=== PATIENT | female | born 1985 | race Two or more races ===

== ENCOUNTER 2020-12-20 09:03 | Emergency (ER) | payer BC, OTHER ==
[~2020-12-20] VITALS: Ht 160 cm; Wt 63.1 kg
[2020-12-20 09:10] VITALS: BP 131/71
--- NOTE | 2020-12-20 09:41 | PHYS DOC ---
General Adult EDM: Chief Complaint: VAGINAL BLEEDING HPI: HPI: 35-year-old female presents with vaginal bleeding in . She presents with her who is attached to the local base. Telugu is her second language as they are both [place]. They took a home test 1 week ago. She has not seen an OB. The patient's last menstrual cycle was November 12, 2020. She has been having some light menstrual bleeding yesterday and today. She has had some intermittent abdominal cramping as well and she was concerned. She denies fever or chills. She has no other complaints at this time. Review of Systems: Review of Systems: Constitutional: Denies fever or chills Eyes: Denies change in visual acuity HENT: Denies nasal congestion or sore throat Respiratory: Denies cough or shortness of breath Cardiovascular: Denies chest pain or edema GI: Denies abdominal pain, nausea, vomiting, bloody stools or diarrhea : Vaginal bleeding Musculoskeletal: Denies back pain or joint pain Integument: Denies rash Neurologic: Denies headache, focal weakness or sensory changes Endocrine: Denies polyuria or polydipsia Lymphatic: Denies swollen glands Psychiatric: Denies depression or anxiety Physical Exam: PE: Constitutional: Well developed, well nourished, no acute distress, non-toxic appearance. [] HENT: Normocephalic, atraumatic, bilateral external ears normal, oropharynx moist, no oral exudates, nose normal. [] Eyes: PERRLA, EOMI, conjunctiva normal, no discharge. [] Neck: Normal range of motion, no tenderness, supple, no stridor. [] Cardiovascular: Heart rate regular rhythm, no murmur [] Lungs & Thorax: Bilateral breath sounds clear to auscultation [] Abdomen: Bowel sounds normal, soft, no tenderness, no masses, no pulsatile masses. [] Skin: Warm, dry, no erythema, no rash. [] Back: No tenderness, no CVA tenderness. [] Extremities: No tenderness, no cyanosis, no clubbing, ROM intact, no edema. [] Neurologic: Alert and oriented X 3, normal motor function, normal sensory function, no focal deficits noted. [] Psychologic: Affect normal, judgement normal, mood normal. [] EKG: EKG: [] Radiology/Procedures: Radiology/Procedures: [] Impressions: US OB <14 WKS History: Reason: vaginal bleeding, +preg, cramping / Spl. Instructions: / Hist ory: Comparison: None. Technique: Grayscale and color Doppler imaging of the pelvis was performed using transabdominal and transvaginal technique. Findings: The uterus measures 7.6 x 4.8 x 4.2 cm. Endometrial thickness 1.4 cm. No evidence of intrauterine gestational sac. Small complicated free fluid within the posterior cul-de-sac. Small rounded structure within the posterior cul-de-sac measures 0.7 x 0.7 cm. Right ovary not identified due to positioning and overlying structures. Left ovary measures 2.4 x 3.0 x 1.3 cm. IMPRESSION: 1. No evidence of intrauterine gestational sac. 2. Indeterminate rounded circular structure within the posterior cul-de-sac. Recommend short-term ultrasound follow-up and serial beta hCG testing to exclude ectopic . 3. Small complicated free fluid within the posterior cul-de-sac. 4. Right ovary not identified. Electronically signed by: Marycruz Hirsch DO (12/20/2020 12:29 PM) [facility] DICTATED AND SIGNED BY: MARYCRUZ HIRSCH DO DATE: 12/20/20 1226 CC: KIERSTEN MERAZ DO; PCP,UNKNOWN ~MTH0 0 Heart Score: C/O Chest Pain: N/A Risk Factors: Risk Factors: DM, Current or recent (<one month) smoker, HTN, HLP, family history of CAD, obesity. Risk Scores: Score 0 - 3: 2.5% MACE over next 6 weeks - Discharge Home Score 4 - 6: 20.3% MACE over next 6 weeks - Admit for Clinical Observation Score 7 - 10: 72.7% MACE over next 6 weeks - Early Invasive Strategies Course & Med Decision Making: Course & Med Decision Making Pertinent Labs and Imaging studies reviewed. (See chart for details) The patient's labs are unremarkable. Her urinalysis is negative for infection. She is . Her hCG is 122. The ultrasound is not definitive. See official read for more details. I have advised the patient to follow-up on for a repeat hCG level. If the numbers going up, she will need a repeat ultrasound. If it is going down she will need to continue to have her levels checked until there is 0. If the patient has increased pain or other symptoms, she is welcome to return to the emergency room. She is stable for discharge at this time. [] Dragon Disclaimer: Dragon Disclaimer: This electronic medical record was generated, in whole or in part, using a voice recognition dictation system. Departure Departure: Impression: Primary Impression: Vaginal bleeding during Disposition: HOME / SELF CARE / HOMELESS Condition: STABLE Referrals: PCP,UNKNOWN (PCP) Patient Instructions: Vaginal Bleeding During , First Trimester KIERSTEN MERAZ DO Dec 20, 2020 09:41
[2020-12-20 10:02] LABS: BASO % 1 % (0-3); EOS % 1 % (0-3); HEMATOCRIT 36.8 % (36.0-47.0); HEMOGLOBIN 12.6 g/dL (12.0-15.5); LYMPH # 1.7 x10^3/uL (1.0-4.8); LYMPH % 33 % (24-48); MEAN CORPUSCULAR HEMOGLOBIN 30 pg (25-35); MEAN CORPUSCULAR HGB CONC 34 g/dL (31-37); MEAN CORPUSCULAR VOLUME 89 fL (79-100); MONO # 0.3 x10^3/uL (0.0-1.1); MONO % 7 % (0-9); NEUT # 3.1 x10^3uL (1.8-7.7); NEUT % 59 % (31-73); PLATELET COUNT 219 x10^3/uL (140-400); RED BLOOD COUNT 4.16 x10^6/uL (3.50-5.40); WHITE BLOOD COUNT 5.2 x10^3/uL (4.0-11.0)
[2020-12-20 10:07] LABS: BACTERIA,URINE 0 /HPF (0-FEW); BILIRUBIN,URINE NEG (NEG); CLARITY,URINE CLEAR; COLOR,URINE YELLOW; GLUCOSE,URINE NEG (NEG); NITRITE,URINE NEG (NEG); RBC,URINE OCC /HPF (0-2); SQUAMOUS EPITHELIAL CELL,UR MOD /LPF; UROBILINOGEN,URINE 0.2 mg/dL (0.2 mg/dL); WBC,URINE OCC /HPF (0-4)
[2020-12-20 10:11] LABS: CALCIUM 8.7 mg/dL (8.5-10.1); CREATININE 0.8 mg/dL (0.6-1.0); GFR 82.6; POTASSIUM 3.7 mmol/L (3.5-5.1)
[2020-12-20 10:17] LABS: ALBUMIN 3.9 g/dL (3.4-5.0); ALBUMIN/GLOBULIN RATIO 1.2 (1.0-1.7); TOTAL BILIRUBIN 0.4 mg/dL (0.2-1.0); TOTAL PROTEIN 7.1 g/dL (6.4-8.2)
--- NOTE | 2020-12-20 12:31 | RAD ---
US OB <14 WKS History: Reason: vaginal bleeding, +preg, cramping / Spl. Instructions: / History: Comparison: None. Technique: Grayscale and color Doppler imaging of the pelvis was performed using transabdominal and t ransvaginal technique. Findings: The uterus measures 7.6 x 4.8 x 4.2 cm. Endometrial thickness 1.4 cm. No evidence of intrauterine gestational sac. Small complicated free fluid within the posterior cul-de -sac. Small rounded structure within the posterior cul-de-sac measures 0.7 x 0.7 cm. Right ovary not identified due to positioning and overlying structures. Left ovary measures 2.4 x 3.0 x 1.3 cm. IMPRESSION: 1. No evidence of intrauterine gestational sac. 2. Indeterminate rounded circular structure within the posterior cul-de-sac. Recommend short-term ul trasound follow-up and serial beta hCG testing to exclude ectopic . 3. Small complicated free fluid within the posterior cul-de-sac. 4. Right ovary not identified. Electronically signed by: Armen Ford DO (12/20/2020 12:29 PM) [facility]
== END 2020-12-20 12:50 | disposition home or self-care (01) ==
LOC: ER 09:03
DX: O46.91 Antepartum hemorrhage, unspecified, first trimester (principal); R10.9 Unspecified abdominal pain; Z3A.00 Weeks of gestation of pregnancy not specified
CPT/HCPCS: 36415; 76801; 80053; 81001; 81025; 84702; 85025; 86900; 86901; 99284

== ENCOUNTER 2020-12-27 16:23 | Emergency (ER) | payer BC ==
[~2020-12-27] VITALS: Ht 160 cm; Wt 62.7 kg
[2020-12-27 16:28] VITALS: BP 121/83
--- NOTE | 2020-12-27 17:52 | PHYS DOC ---
Past History Past Surgical History: No Surgical History (DIETERMARGO DO) Alcohol Use: None (MARGO GARCIAS Ambrocio HESS) General Adult EDM: Chief Complaint: VAGINAL BLEEDING HPI: HPI: Patient is a [age] year old [sex] who presents with [] (MARGO GARCIAS ) Review of Systems: Review of Systems: Constitutional: Denies fever or chills Eyes: Denies change in visual acuity HENT: Denies nasal congestion or sore throat Respiratory: Denies cough or shortness of breath Cardiovascular: Denies chest pain or edema GI: Denies abdominal pain, nausea, vomiting, bloody stools or diarrhea : Denies dysuria Musculoskeletal: Denies back pain or joint pain Integument: Denies rash Neurologic: Denies headache, focal weakness or sensory changes Endocrine: Denies polyuria or polydipsia Lymphatic: Denies swollen glands Psychiatric: Denies depression or anxiety (DIETERMARGO DO) Allergies: Allergies: Allergies Coded Allergies Type Severity Reaction Last Updated Verified No Known Drug Allergies 12/27/20 No (DIETERMARGO DO) Physical Exam: PE: Constitutional: Well developed, well nourished, no acute distress, non-toxic appearance. [] HENT: Normocephalic, atraumatic, bilateral external ears normal, oropharynx moist, no oral exudates, nose normal. [] Eyes: PERRLA, EOMI, conjunctiva normal, no discharge. [] Neck: Normal range of motion, no tenderness, supple, no stridor. [] Cardiovascular:Heart rate regular rhythm, no murmur [] Lungs & Thorax: Bilateral breath sounds clear to auscultation [] Abdomen: Bowel sounds normal, soft, no tenderness, no masses, no pulsatile masses. [] Skin: Warm, dry, no erythema, no rash. [] Back: No tenderness, no CVA tenderness. [] Extremities: No tenderness, no cyanosis, no clubbing, ROM intact, no edema. [] Neurologic: Alert and oriented X 3, normal motor function, normal sensory func tion, no focal deficits noted. [] Psychologic: Affect normal, judgement normal, mood normal. [] (DIETERMARGO DO) Current Patient Data: Vital Signs: Vital Signs Date Time Temp Pulse Resp B/P (MAP) Pulse Ox O2 Delivery O2 Flow Rate FiO2 12/27/20 16:28 98.6 72 17 121/83 100 Room Air (MARGO GARCIAS DO) EKG: EKG: [] (MARGO GARCIAS DO) Radiology/Procedures: Radiology/Procedures: [] (MARGO GARCIAS DO) Heart Score: C/O Chest Pain: No Risk Factors: Risk Factors: DM, Current or recent (<one month) smoker, HTN, HLP, family history of CAD, obesity. Risk Scores: Score 0 - 3: 2.5% MACE over next 6 weeks - Discharge Home Score 4 - 6: 20.3% MACE over next 6 weeks - Admit for Clinical Observation Score 7 - 10: 72.7% MACE over next 6 weeks - Early Invasive Strategies (MARGO GARCIAS DO) Course & Med Decision Making: Course & Med Decision Making Pertinent Labs and Imaging studies reviewed. (See chart for details) [] (MARGO GARCIAS DO) Course & Med Decision Making See Dr. Garcias chart for details prior shift change. Pt. declining US. Wants to wait for followup Tomorrow. Must keep follow up. Return if any concerns. Continue pad counts. Re-exam 2000 hrs. Pain and cramping resolved. Still some spotting. Pt. to continue Tylenol and pad counts. Must keep follow up tomorrow DTR+ 2 patella and brachial. No ankle edema.. UA -benign some RBCs. Pt. dependent from [place]. 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 This is patient's second , prior vaginal delivery without problems. Patient is normally healthy. Follow-up pending labs. Return if any concerns. Patient has been still declining ultrasound at this time. Wishes to complete it tomorrow at regular scheduled appointment. Patient only follows at [place]. But sees OB for this . Impression: 1. Threaten 2. Beta hCG Last 130 recheck tonight 67 ( This is down from previous 120- 130"s) 3. Material Blood Type O + (ESTRELLA SMITH MD) [place] Disclaimer: Jama Disclaimer: This electronic medical record was generated, in whole or in part, using a voice recognition dictation system. (MARGO GARCIAS DO) Departure Departure: Referrals: LAURO SHIPMAN (PCP) MARGO GARCIAS DO Dec 27, 2020 17:52 ESTRELLA SMITH MD Dec 27, 2020 18:12
[2020-12-27 19:24] LABS: BILIRUBIN,URINE NEG (NEG); CLARITY,URINE CLEAR; COLOR,URINE PINK; GLUCOSE,URINE NEG (NEG); NITRITE,URINE NEG (NEG); UROBILINOGEN,URINE 0.2 mg/dL (0.2 mg/dL)
[2020-12-27 19:27] LABS: BACTERIA,URINE 0 /HPF (0-FEW); RBC,URINE TNTC /HPF (0-2); SQUAMOUS EPITHELIAL CELL,UR MOD /LPF; WBC,URINE OCC /HPF (0-4)
== END 2020-12-27 20:19 | disposition home or self-care (01) ==
LOC: ER 16:23
DX: O20.0 Threatened abortion (principal); Z3A.01 Less than 8 weeks gestation of pregnancy
CPT/HCPCS: 36415; 81001; 84702; 86850; 86900; 86901; 99283